=== PATIENT | male | born 1985 | race Caucasian/White ===

== ENCOUNTER 2016-05-29 19:30 | Inpatient (IN) | payer SELFPAY ==
[~2016-05-29] VITALS: Ht 182.9 cm; Wt 70.4 kg
[2016-05-29 19:32] VITALS: BP 133/79; PULSE 81; RESP 18; TEMP 98.5; O2SAT 100
[2016-05-29 20:46] VITALS: BP 127/78; PULSE 85; RESP 18; O2SAT 100
[2016-05-29] MEDS ORDERED: PIPERACIL-TAZO 4.5 GM PREMIX 100 ML IV STA (20:50)
[2016-05-29] MEDS ORDERED: VANCOMYCIN INJ 1,000 MG in SODIUM CHLOR 0.9% 250 ML INJ 250 ML IV STA (20:50)
[2016-05-29] MEDS ORDERED: SODIUM CHLOR 0.9% 1000 ML INJ 1,000 ML IV ONE (20:50)
--- NOTE | 2016-05-29 20:58 | PD ---
HPI Chief Complaint: Injury Time Seen by Provider: 20:50 Travel History International Travel<30 days: No Contact w/Intl Traveler<30days: No Traveled to known affect area: No History of Present Illness HPI 30-year-old [facility] male with history of no significant past medical issues presents to the ER today because he states that he had cut his left hand on a rock 6 days ago while kayaking, and his hands started becoming more swollen, red , and painful. He had tried to take Cipro for 2 days but with no relief. He denies any fevers or any other issues. Pain is currently a 10 out of 10. Modifying Factors: None Associated Signs & Symptoms: Left hand injury and infection Risk Factors: None PFSH Past Medical History Medical History: Denies Significant Hx ?: Not Past Surgical History Surgical History: No Previous Surgery Social History Alcohol Use: No Tobacco Use: No Substance Use: No Allergies-Medications (Allergen,Severity, Reaction): Coded Allergies: No Known Allergies (Unverified , 05/29/16) Reported Meds & Prescriptions Reported Meds & Active Scripts Active No Active Prescriptions or Reported Medications Review of Systems Except as stated in HPI: all other systems reviewed are Neg Physical Exam Narrative GENERAL: Well-nourished, well-developed young male patient in no acute distress. SKIN: Warm and dry. HEAD: Normocephalic. EYES: No scleral icterus. No injection or drainage. NECK: Supple, trachea midline. CARDIOVASCULAR: Regular rate and rhythm without murmurs, gallops, or rubs. RESPIRATORY: Breath sounds equal bilaterally. No accessory muscle use. GASTROINTESTINAL: Abdomen soft, non-tender, nondistended. MUSCULOSKELETAL: No cyanosis, or edema. BACK: Nontender without obvious deformity. No CVA tenderness. Left hand: There is a notable 1 cm wound to the left first metacarpal area, and surrounding edema and erythema over the first 3 metacarpal area extending towards the digits and up to the wrist, tender to palpation, I am unable to palpate obvious fluctuance. Data Data Last Documented VS Vital Signs Date Time Temp Pulse Resp B/P Pulse Ox O2 Delivery O2 Flow Rate FiO2 05/29/16 20:46 100 Room Air 05/29/16 20:46 85 18 127/78 05/29/16 19:32 98.5 Orders Complete Blood Count With Diff (05/29/16 20:50) Comprehensive Metabolic Panel (05/29/16 20:50) Lactic Acid Sepsis Protocol (05/29/16 20:50) Blood Culture (05/29/16 20:50) Blood Glucose (05/29/16 20:50) Ecg Monitoring (05/29/16 20:50) Iv Access Insert/Monitor (05/29/16 20:50) Oximetry (05/29/16 20:50) Oxygen Administration (05/29/16 20:50) Hydromorphone Pf Inj (Dilaudid Pf Inj) (05/29/16 21:00) Ondansetron Inj (Zofran Inj) (05/29/16 21:00) Piperacil-Tazo 4.5 Gm Premix (Zosyn 4.5 (05/29/16 20:50) Vancomycin Inj (Vancomycin Inj) (05/29/16 20:50) Sodium Chlor 0.9% 1000 Ml Inj (Ns 1000 M (05/29/16 20:50) Hand, Complete (Ont5ett) (05/29/16 20:50) Consult Hand Surgery (05/29/16 ) [employer] Request For Service (05/29/16 22:11) Labs Laboratory Tests Test 05/29/16 05/29/16 20:50 21:05 Lactic Acid Level 1.4 mmol/L White Blood Count 12.6 TH/MM3 Red Blood Count 5.16 MIL/MM3 Hemoglobin 15.4 GM/DL Hematocrit 44.7 % Mean Corpuscular Volume 86.5 FL Mean Corpuscular Hemoglobin 29.7 PG Mean Corpuscular Hemoglobin 34.4 % Concent Red Cell Distribution Width 13.7 % Platelet Count 181 TH/MM3 Mean Platelet Volume 9.1 FL Neutrophils (%) (Auto) 81.1 % Lymphocytes (%) (Auto) 10.2 % Monocytes (%) (Auto) 6.2 % Eosinophils (%) (Auto) 2.1 % Basophils (%) (Auto) 0.4 % Neutrophils # (Auto) 10.2 TH/MM3 Lymphocytes # (Auto) 1.3 TH/MM3 Monocytes # (Auto) 0.8 TH/MM3 Eosinophils # (Auto) 0.3 TH/MM3 Basophils # (Auto) 0.0 TH/MM3 CBC Comment DIFF FINAL Differential Comment Sodium Level 139 MEQ/L Potassium Level 3.9 MEQ/L Chloride Level 103 MEQ/L Carbon Dioxide Level 29.9 MEQ/L Anion Gap 6 MEQ/L Blood Urea Nitrogen 11 MG/DL Creatinine 1.05 MG/DL Estimat Glomerular Filtration 84 ML/MIN Rate Random Glucose 82 MG/DL Calcium Level 8.7 MG/DL Total Bilirubin 2.0 MG/DL Aspartate Amino Transf 34 U/L (AST/SGOT) Alanine Aminotransferase 24 U/L (ALT/SGPT) Alkaline Phosphatase 74 U/L Total Protein 8.6 GM/DL Albumin 4.3 GM/DL MDM Medical Decision Making Medical Screen Exam Complete: Yes Emergency Medical Condition: Yes Medical Record Reviewed: Yes Interpretation(s) Laboratory Tests Test 05/29/16 21:05 White Blood Count 12.6 TH/MM3 (4.0-11.0) Neutrophils (%) (Auto) 81.1 % (16.0-70.0) Neutrophils # (Auto) 10.2 TH/MM3 (1.8-7.7) Estimat Glomerular Filtration 84 ML/MIN (>89) Rate Total Bilirubin 2.0 MG/DL (0.2-1.0) Total Protein 8.6 GM/DL (6.4-8.2) Last 24 hours Impressions Hand X-Ray 05/29/162049 Signed Impressions: Service Date/Time: Sunday, May 29, 2016 21:04 - CONCLUSION: Soft tissue swelling without fracture. Tung Baker MD Differential Diagnosis Left hand injury and infectioncellulitis versus abscess Narrative Course His hand is quite edematous, although I am not able to palpate obvious fluctuance. At this point, x-ray did not show any signs of acute fractures or underlying foreign bodies. IV antibiotics had been initiated after cultures are drawn. And case was discussed with Dr. Herrera who states that he would like the patient to be medically admitted with IV antibiotics and hand elevation with IV pole and consult him and medically admitted. Case was discussed with Dr. Avalos for admission. Sepsis Criteria SIRS Criteria (2 or more): WBC > 65469, < 4000 or > 10% bands Sepsis Criteria (SIRS+source): Infect source susp/known Diagnosis Primary Impression: Cellulitis of left hand Admitting Information Admitting Physician Requests: Admit Scripts No Active Prescriptions or Reported Meds Kelly Mota MD May 29, 2016 20:58
[2016-05-29] MEDS ORDERED: ONDANSETRON HCL 4 MG/2 ML VIAL IV ONE (21:00)
[2016-05-29] MEDS ORDERED: HYDROmorphone HCL PF 1 MG/ML VIAL IV ONE (21:00)
[2016-05-29 21:23] LABS: AUTOMATED NEUTROPHIL # 10.2 TH/MM3 (1.8-7.7); BASOPHIL % 0.4 % (0.0-2.0); EOSINOPHIL # 0.3 TH/MM3 (0-0.4); EOSINOPHIL % 2.1 % (0.0-4.0); HEMATOCRIT 44.7 % (39.0-51.0); HEMO FLAGS DIFF FINAL; LYMPH % 10.2 % (9.0-44.0); LYMPHOCYTE # 1.3 TH/MM3 (1.0-4.8); MEAN CELL VOLUME 86.5 FL (80.0-100.0); MEAN CORPUSCULAR HEMOGLOBIN 29.7 PG (27.0-34.0); MEAN CORPUSCULAR HGB CONC 34.4 % (32.0-36.0); MONO % 6.2 % (0.0-8.0); NEUT % 81.1 % (16.0-70.0); PLATELET COUNT 181 TH/MM3 (150-450); RED BLOOD COUNT 5.16 MIL/MM3 (4.50-5.90); RED CELL DISTRIBUTION WIDTH 13.7 % (11.6-17.2); WHITE BLOOD COUNT 12.6 TH/MM3 (4.0-11.0)
--- NOTE | 2016-05-29 21:28 | RADRPT ---
EXAM DATE/TIME: 05/29/2016 21:04 [facility] COMPARISON: No previous studies available for comparison. INDICATIONS : Trauma to left hand. Swollen. MEDICAL HISTORY : None. SURGICAL HISTORY : None. ENCOUNTER: Initial ACUITY: 1 day PAIN SCORE: 5/10 LOCATION: Left hand FINDINGS: Bones of the left hand are intact and normally aligned. There is dorsal predominant soft tissue swell ing from the wrist to the metacarpophalangeal joint. No radiopaque foreign body demonstrated. CONCLUSION: Soft tissue swelling without fracture. Tung Baker MD on May 29, 2016 at 21:26 Board Certified Radiologist. This report was verified electronically.
[2016-05-29 21:43] LABS: ALKALINE PHOSPHATASE 74 U/L (45-117); ALT (GPT) 24 U/L (12-78); ANION GAP 6 MEQ/L (5-15); AST (GOT) 34 U/L (15-37); BICARBONATE 29.9 MEQ/L (21.0-32.0); BLOOD UREA NITROGEN 11 MG/DL (7-18); CHLORIDE 103 MEQ/L (98-107); GLOMERULAR FILTRATION RATE 84 ML/MIN (>89); SODIUM (NA) 139 MEQ/L (136-145)
[2016-05-29 22:00] LABS: POTASSIUM 3.9 MEQ/L (3.5-5.1)
[2016-05-29] MEDS ORDERED: NALOXONE HCL 0.4 MG/ML AMP IV PRN (22:30)
[2016-05-29] MEDS ORDERED: ONDANSETRON HCL 4 MG/2 ML VIAL IVP PRN (22:30)
[2016-05-29] MEDS ORDERED: SODIUM CHLORIDE 0.9% FLUSH 5 ML FLUSH FLUSH PRN (22:30)
[2016-05-29] MEDS ORDERED: Vancomycin Consult Pharmacy 1 EA OTHER SCH (22:30)
[2016-05-30] VITALS (8 sets, daily range): BP systolic 111–138; BP diastolic 70–89; PULSE 58–102; RESP 16–18; TEMP 97.7–99.6; O2SAT 96–100
[2016-05-30] MEDS ORDERED: VANCOMYCIN INJ 1,500 MG in SODIUM CHLORID 0.9% 500 ML INJ 500 ML IV SCH (01:00)
[2016-05-30] MEDS: HYDROmorphone HCL PF 1 MG/ML VIAL IV PUSH PRN ×5 (02:48→23:00)
--- NOTE | 2016-05-30 03:42 | HHI.HP ---
[facility] Service [facility] Primary Care Physician No Primary Care Physician Admission Diagnosis left hand cellulitis Diagnoses: (1) Cellulitis of left hand Chief Complaint: left hand injury with increasing pain and selling Travel History International Travel<30 Days: No Contact w/Intl Traveler <30 Da: No Traveled to Known Affected Are: No History of Present Illness Mr. Doss is a 30 year-old male with no significant medical history who is visiting the [facility] from [facility] who presented to the ER on 05/29/16 because his left hand was cut on a rock 6 days ago and had become more edematous, erythematous, and painful despite two days of treatment with Ciprofloxacin. The patient is seen in the emergency room. He is Bulgarian-speaking and the medical center manager was used. He states that while he was kayaking about a week ago and [facility], he scratched his hand on a rock. He was seen while he was seen by a in the and given ciprofloxacin 500 mg to take twice a day. He completed about 1-1/2 days of therapy and continued to experience worsening swelling, erythema, and pain. He reports the pain is severe and describes it as throbbing and worse with movement. Over the past two weeks he denies: Fevers, chills, nausea, vomiting, diarrhea, hematochezia, melena, hematuria, dysuria He denies any medical problems including diabetes mellitus, hypertension, breathing problems, heart problems, liver or kidney problems. He denies any problems with anesthesia in family members . Review of Systems Except as stated in HPI: all other systems reviewed are Neg Past Family Social History Past Medical History Denies any significant medical history . Past Surgical History Denies . Reported Medications Reported Meds & Active Scripts Active No Active Prescriptions or Reported Medications . Allergies: Coded Allergies: No Known Allergies (Unverified , 05/29/16) Active Ordered Medications Current Medications Hydromorphone HCl (Dilaudid Pf Inj) 0.5 mg ONCE ONCE IV Last administered on t 21:16; Start 05/29/16 at 21:00; Stop 05/29/16 at 21:01; Status DC Ondansetron HCl 4 mg 4 mg ONCE ONCE IV Last administered on 05/29/16 21:16; Start 05/29/16 at 21:00; Stop 05/29/16 at 21:01; Status DC Piperacillin Sod/ Tazobactam Sod 100 ml @ 200 mls/hr ONCE STAT IV Last administered on 05/29/16 21:16; Start 05/29/16 at 20:50; Stop 05/29/16 at 21:19; Status DC Vancomycin HCl 1000 mg/Sodium Chloride 250 ml @ 250 mls/hr ONCE STAT IV Last administered on 05/29/16 21:58; Start 05/29/16 at 20:50; Stop 05/29/16 at 21:49; Status DC Sodium Chloride (NS 1000 ml Inj) 1,000 ml @ 1,000 mls/hr Q1H ONCE IV Last administered on 05/29/16 21:16; Start 05/29/16 at 20:50; Stop 05/29/16 at 21:49; Status DC IV Flush (NS Flush) 2 ml UNSCH PRN FLUSH FLUSH AFTER USING IV ACCESS; Start 05/29/16 at 22:30 IV Flush (NS Flush) 2 ml BID FLUSH ; Start 05/30/16 at 09:00 Ondansetron HCl (Zofran Inj) 4 mg Q6H PRN IVP NAUSEA OR VOMITING Last administered on 05/30/16 02:48; Start 05/29/16 at 22:30 Naloxone HCl 0.4 mg 0.4 mg UNSCH PRN IV SEE LABEL COMMENTS; Start 05/29/16 at 22 :30 Pharmacy Profile Note 0 ml @ 0 mls/hr UNSCH OTHER ; Start 05/29/16 at 22:30 Piperacillin Sod/ Tazobactam Sod (Zosyn 4.5 Gm Premix) 100 ml @ 200 mls/hr Q6H IV Last administered on 05/30/16 03:45; Start 05/30/16 at 03:00 Hydromorphone HCl 0.2 mg 0.2 mg Q4H PRN IV PUSH pain >5 Last administered on 02:48; Start 05/29/16 at 22:30 Vancomycin HCl/ Sodium Chloride (Vancomycin Inj/ NS 500 ml Inj) 515 ml @ 250 mls/hr DAILY@ IV ; Start 05/30/16 at 01:00; Stop 05/30/16 at 06:00 . Family History Denies any significant medical history in any family members . Social History Tobacco: denies Alcohol: denies Illicit Drugs: denies . Physical Exam Vital Signs Vital Signs Date Time Temp Pulse Resp B/P Pulse Ox O2 Delivery O2 Flow Rate FiO2 05/30/16 03:00 72 18 126/89 99 Room Air 05/30/16 01:10 70 18 128/78 99 Room Air 05/30/16 00:15 99 Room Air 05/30/16 00:15 99 05/30/16 00:05 16 05/29/16 20:46 100 Room Air 05/29/16 20:46 85 18 127/78 100 Room Air 05/29/16 19:32 98.5 81 18 133/79 100 Room Air Physical Exam GENERAL: This is a well-nourished, well-developed patient, in no apparent distress. His hair is colored pink. SKIN: No rashes, ecchymoses or lesions. Cool and dry.Dorsal and anderson aspects of left hand indurated area with erythema and a dime-sized lesion with a central yellowish white pustule. HEAD: Atraumatic. Normocephalic. EYES: No scleral icterus. No injection or drainage. ENT: Nose without bleeding, purulent drainage. NECK: Trachea midline. No JVD or lymphadenopathy. CARDIOVASCULAR: Regular rate and rhythm without murmurs, gallops, or rubs. RESPIRATORY: Clear to auscultation. Breath sounds equal bilaterally. No wheezes , rales, or rhonchi. GASTROINTESTINAL: Abdomen soft, non-tender, nondistended. No guarding. MUSCULOSKELETAL: Extremities without clubbing, cyanosis, or edema. No calf tenderness. NEUROLOGICAL: Awake and alert. Motor and sensory grossly within normal limits. Normal speech. . Laboratory Laboratory Tests Test 05/29/16 05/29/16 20:50 21:05 Lactic Acid Level 1.4 White Blood Count 12.6 Red Blood Count 5.16 Hemoglobin 15.4 Hematocrit 44.7 Mean Corpuscular Volume 86.5 Mean Corpuscular Hemoglobin 29.7 Mean Corpuscular Hemoglobin 34.4 Concent Red Cell Distribution Width 13.7 Platelet Count 181 Mean Platelet Volume 9.1 Neutrophils (%) (Auto) 81.1 Lymphocytes (%) (Auto) 10.2 Monocytes (%) (Auto) 6.2 Eosinophils (%) (Auto) 2.1 Basophils (%) (Auto) 0.4 Neutrophils # (Auto) 10.2 Lymphocytes # (Auto) 1.3 Monocytes # (Auto) 0.8 Eosinophils # (Auto) 0.3 Basophils # (Auto) 0.0 CBC Comment DIFF FINAL Differential Comment Sodium Level 139 Potassium Level 3.9 Chloride Level 103 Carbon Dioxide Level 29.9 Anion Gap 6 Blood Urea Nitrogen 11 Creatinine 1.05 Estimat Glomerular Filtration 84 Rate Random Glucose 82 Calcium Level 8.7 Total Bilirubin 2.0 Aspartate Amino Transf 34 (AST/SGOT) Alanine Aminotransferase 24 (ALT/SGPT) Alkaline Phosphatase 74 Total Protein 8.6 Albumin 4.3 Date/Time Procedure Status Source Growth 05/29/16 21:05 Aerobic Blood Culture Received Blood Peripheral Pending 05/29/16 21:05 Anaerobic Blood Culture Received Blood Peripheral Pending Result Diagram: 05/29/16210405/29/162104 Imaging Last Impressions Hand X-Ray 05/29/162049 Signed Impressions: Service Date/Time: Sunday, May 29, 2016 21:04 - CONCLUSION: Soft tissue swelling without fracture. Tung Baker MD . Assessment and Plan Problem List: (1) Cellulitis of left hand ICD Code: L03.114 Status: Acute Assessment and Plan Left hand cellulitis - Left hand x-ray: soft tissue swelling without fracture - WBC > 12,000 with neutrophilia - Lactic acid 1.4 - Dr. Herrera consulted by ER physician; case was reviewed with him by ER MD - NPO for possible surgery in a.m. - Zosyn 4.5 grams IV q6h - Vancomycin IV with pharmacy consultation for assistance with therapeutic monitoring and dosing - Dilaudid 0.2 mg IV push every 4 hours as needed for pain - Case management consult - Monitor vital signs every 4 hours - Follow results of blood cultures (ordered in ER) DVT prophylaxis - SCDs Written by Ludmila Gold, acting as scribe for Dr. Avaols on 05/30/16 at 03:41. All or portions of this note were transcribed by scribe [Ludmila Gold]. I, Dr. Melinda Avalos personally performed the history, physical exam, and medical decision making; and confirmed the accuracy of the information in the transcribed note. Authenticated by Dr. Melinda Avalos on 05/30/16 at 0341 Discussed Condition With ER physician, RN, pharmacy, and patient . Physician Certification 2 Midnight Certification Type: Admission for Inpatient Services Order for Inpatient Services The services are ordered in accordance with Medicare regulations or non- Medicare payer requirements, as applicable. In the case of services not specified as inpatient-only, they are appropriately provided as inpatient services in accordance with the 2-midnight benchmark. Estimated LOS (days): 3 days is the estimated time the patient will need to remain in the hospital, assuming treatment plan goals are met and no additional complications. Post-Hospital Plan: Not yet determined Ludmila Gold May 30, 2016 03:42 Melinda Avalos MD May 30, 2016 06:59
[2016-05-30] MEDS: PIPERACIL-TAZO 4.5 GM PREMIX 100 ML IV SCH ×4 (03:45→21:09)
[2016-05-30] MEDS ORDERED: SODIUM CHLORIDE 0.9% FLUSH 5 ML FLUSH FLUSH SCH (09:00)
[2016-05-30] MEDS: VANCOMYCIN 1,000 MG/NS 250 ML IV SCH ×4 (10:05→22:38)
[2016-05-30] MEDS ORDERED: MORPHINE SULFATE 4 MG/ML INJ IV PUSH ONE (13:30)
--- NOTE | 2016-05-30 14:51 | MB ---
cc: ROGE CALABRESE III, M.D. 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 He was kayaking six or seven days ago and he scraped his left hand on the palm. He went to a doctor two days ago and got Cipro but presented late last night to the emergency room. He was started on IV vancomycin and Zosyn. PAST MEDICAL HISTORY Denied. PAST SURGICAL HISTORY Denied. MEDICATIONS Denied. ALLERGIES No known drug allergies. SOCIAL HISTORY He does not smoke. REVIEW OF SYSTEMS He is not complaining of any headaches, blurry or double vision. He is not complaining of any coughing, wheezing or shortness breath. He is not complaining of any nausea, vomiting, abdominal pain. He is not complaining of any burning, frequency or urgency with urination. He is not complaining of any spine, neck or back pain. He is not complaining of any night sweats, fevers or chills. He is not complaining of any anxiety, depression or suicidal ideations. He is not complaining of any skin lesions, rashes or eruptions on his skin except for his left hand. LABORATORY Laboratory studies were done. The white count yesterday was 12, 600. Microbiology has blood cultures which are negative thus far. IMAGING X-ray examination of his left hand revealed the bones of the left hand are intact. Dorsal predominant soft tissue swelling from the wrist to the MP joint. No radiopaque foreign body demonstrated. PHYSICAL EXAMINATION GENERAL: The patient is well-nourished and well-developed in no apparent distress, sitting comfortably in his bed. VITAL SIGNS: No temperatures recorded. Pulse 58, respiratory rate 16, blood pressure 121/73. LEFT UPPER EXTREMITY: His left hand is elevated in a sling. He has cellulitis in his palm with an eschar in the middle of his palm abutting the thenar eminence. There is a question of some fluctuance and there is suggestion of an abscess. Capillary refill is less than two seconds in all fingertips. All musculotendinous units are intact. There is no epitrochlear or axillary adenopathy. There is no proximal streaking across the wrist into the forearm. NEUROLOGIC: He is awake, alert and oriented x3. He is conversant through an architecture internship here as a nurse who speaks Upper Sorbian and interpreting everything between us. He is very pleasant. IMPRESSION Left hand cellulitis with possible abscess. PLAN I discussed this with the patient through the architecture internship to do limited incision and drainage here at the bedside and elevate the eschar. This should not need any anesthesia and I discussed this with the patient and he requests that we proceed. MD GHADA Becker III/BT /1:43 PM /2:30 PM
[2016-05-31] VITALS (7 sets, daily range): BP systolic 104–122; BP diastolic 57–76; PULSE 83–102; RESP 16–20; TEMP 98.1–100.4; O2SAT 97–100
[2016-05-31] MEDS: PIPERACIL-TAZO 4.5 GM PREMIX 100 ML IV SCH ×4 (02:19→20:43)
[2016-05-31] MEDS: HYDROmorphone HCL PF 1 MG/ML VIAL IV PUSH PRN ×3 (05:29→21:23)
--- NOTE | 2016-05-31 07:49 | HHI.PR ---
Subjective Remarks Says he has throbbing pain in his hand. Swelling is improving. No chest pain . Denies fever or chills. Noted temp if 100.4 in the morning. Add antipyretics. Objective Vitals Vital Signs Date Time Temp Pulse Resp B/P Pulse Ox O2 Delivery O2 Flow Rate FiO2 05/31/16 04:00 100.4 87 16 119/67 100 05/31/16 00:00 99.9 90 16 122/57 100 05/30/16 20:00 99.6 102 16 111/70 100 05/30/16 16:00 97.7 99 18 138/75 96 05/30/16 13:30 99.0 73 18 125/72 100 05/30/16 11:10 58 16 121/73 100 Room Air 05/30/16 09:10 60 16 122/78 100 Room Air I/O 05/30/16 05/30/16 05/30/16 05/31/16 05/31/16 05/31/16 07:00 15:00 23:00 07:00 15:00 23:00 Intake Total 930 ml Balance 930 ml Intake Oral 480 ml IV Total 450 ml # Voids 2 # Bowel Movements 0 Result Diagram: 05/29/16210405/31/1619 Imaging Last Impressions Hand X-Ray 05/29/162049 Signed Impressions: Service Date/Time: Sunday, May 29, 2016 21:04 - CONCLUSION: Soft tissue swelling without fracture. Tung Baker MD Objective Remarks GENERAL: This is a young 30 yo male, well-nourished, well-developed patient, in no apparent distress. His hair is colored pink. SKIN: No rashes, ecchymoses or lesions. Cool and dry.Dorsal and anderson aspects of left hand indurated area with erythema and a dime-sized lesion with a central yellowish white pustule. HEAD: Atraumatic. Normocephalic. EYES: No scleral icterus. No injection or drainage. ENT: Nose without bleeding, purulent drainage. NECK: Trachea midline. No JVD or lymphadenopathy. CARDIOVASCULAR: Regular rate and rhythm without murmurs, gallops, or rubs. RESPIRATORY: Clear to auscultation. Breath sounds equal bilaterally. No wheezes , rales, or rhonchi. GASTROINTESTINAL: Abdomen soft, non-tender, nondistended. No guarding. MUSCULOSKELETAL: Extremities without clubbing, cyanosis, or edema. No calf tenderness. NEUROLOGICAL: Awake and alert. Motor and sensory grossly within normal limits. Normal speech. A/P Problem List: (1) Cellulitis of left hand ICD Code: L03.114 Status: Acute Assessment and Plan Cellulitis of left hand Left hand x-ray: soft tissue swelling without fracture WBC > 12,000 with neutrophilia, Lactic acid 1.[address] Herrera consulted, s/p bedside I&D 05/30 Continue Zosyn 4.5 grams IV q6h Continue Vancomycin IV with pharmacy consultation for assistance with therapeutic monitoring and dosing Pain management per pain scale as need. Dilaudid 0.2 mg IV push every 4 hours as needed for pain Case management consult Monitor vital signs every 4 hours Blood cultures and wound cultures pending DVT prophylaxis: SCDs Discussed Condition With Patient, nurse. DC plan: pending improvement and clearance by consultants. Kimberly Manley MD May 31, 2016 07:48
[2016-05-31] MEDS ORDERED: ZOLPIDEM TARTRATE 5 MG TAB PO PRN (08:00)
[2016-05-31] MEDS ORDERED: PROCHLORPERAZINE 25 MG SUPP PR PRN (08:00)
[2016-05-31] MEDS ORDERED: NALOXONE HCL 0.4 MG/ML AMP IV PRN (08:00)
[2016-05-31] MEDS ORDERED: ACETAMINOPHEN/HYDROcodone 325 MG/5 MG TAB PO PRN (08:00)
[2016-05-31] MEDS ORDERED: ACETAMINOPHEN 325 MG TAB PO PRN (08:00)
[2016-05-31] MEDS ORDERED: MAGNESIUM HYDROXIDE SUSP 30 ML CUP PO PRN (08:00)
[2016-05-31] MEDS ORDERED: SODIUM CHLORIDE 0.9% FLUSH 5 ML FLUSH FLUSH PRN (08:00)
[2016-05-31] MEDS ORDERED: SENNOSIDES 8.6 MG TAB PO PRN (08:00)
[2016-05-31] MEDS ORDERED: BISACODYL 10 MG SUPP PR PRN (08:00)
[2016-05-31] MEDS: SODIUM CHLORIDE 0.9% FLUSH 5 ML FLUSH FLUSH SCH ×2 (08:54→20:40)
[2016-05-31] MEDS ORDERED: PHARMACY ORDERED LAB XX ONE ×2 (09:45→21:45)
[2016-05-31 10:34] LABS: BASOPHIL % 0.4 % (0.0-2.0); EOSINOPHIL # 0.2 TH/MM3 (0-0.4); EOSINOPHIL % 1.9 % (0.0-4.0); HEMATOCRIT 39.2 % (39.0-51.0); HEMO FLAGS DIFF FINAL; LYMPH % 11.1 % (9.0-44.0); LYMPHOCYTE # 1.2 TH/MM3 (1.0-4.8); MEAN CELL VOLUME 86.2 FL (80.0-100.0); MEAN CORPUSCULAR HEMOGLOBIN 29.1 PG (27.0-34.0); MEAN CORPUSCULAR HGB CONC 33.8 % (32.0-36.0); MONO % 6.7 % (0.0-8.0); NEUT % 79.9 % (16.0-70.0); PLATELET COUNT 184 TH/MM3 (150-450); RED BLOOD COUNT 4.55 MIL/MM3 (4.50-5.90); RED CELL DISTRIBUTION WIDTH 12.8 % (11.6-17.2); WHITE BLOOD COUNT 11.3 TH/MM3 (4.0-11.0)
[2016-05-31] MEDS: VANCOMYCIN 1,000 MG/NS 250 ML IV SCH ×4 (10:34→21:21)
[2016-05-31 10:55] LABS: POTASSIUM 3.2 MEQ/L (3.5-5.1)
[2016-05-31] MEDS ORDERED: POTASSIUM CHLORIDE 10 MEQ CONTROLLED RELEASE TAB PO ONE (11:30)
[2016-05-31] MEDS ORDERED: LIDOCAINE HCL 1% 50 ML VIAL ONE (11:44)
[2016-05-31] MEDS ORDERED: LIDOCAINE HCL 1% 50 ML VIAL INFIL ONE (11:45)
[2016-05-31] MEDS ORDERED: HYDROmorphone HCL PF 1 MG/ML VIAL IV PUSH ONE (11:45)
[2016-05-31] MEDS ORDERED: PROPOFOL 200 MG/20 ML AMP IV ONE (12:00)
--- NOTE | 2016-05-31 12:16 | HHI.PR ---
Subjective Remarks feels only a bit better Objective Vital Signs Date Time Temp Pulse Resp B/P Pulse Ox O2 Delivery O2 Flow Rate FiO2 05/31/16 08:00 99.1 87 16 104/71 100 05/31/16 04:00 100.4 87 16 119/67 100 05/31/16 00:00 99.9 90 16 122/57 100 05/30/16 20:00 99.6 102 16 111/70 100 05/30/16 16:00 97.7 99 18 138/75 96 05/30/16 13:30 99.0 73 18 125/72 100 I/O 05/30/16 05/30/16 05/30/16 05/31/16 05/31/16 05/31/16 07:00 15:00 23:00 07:00 15:00 23:00 Intake Total 930 ml Balance 930 ml Intake Oral 480 ml IV Total 450 ml # Voids 2 # Bowel Movements 0 Result Diagram: 05/31/16 1019 05/31/16 1019 Objective Remarks left hand still erythematous, with induration and purulent drainage soft, not tense; no compartment syndrome Assessment and Plan Problem List: (1) Cellulitis of left hand Status: Acute Plan: not able to tolerated bedside I&D today even with a median nerve block; to OR this afternoon for formal I&D d/w patient, nurse, pet technologist Sukumar Herrera III, MD May 31, 2016 12:16
--- NOTE | 2016-05-31 13:25 | MP ---
cc: SUKUMAR HERRERA III, M.D. DATE OF PROCEDURE 05/30/2016 PROCEDURE Incision and drainage left palm/hand. SURGEON Sukumar Herrera III, MD PROCEDURE The patient provided informed verbal consent in front of his friend and his nurse and he was made comfortable in his bed in his hospital room. The palm was sterilely prepped and, using the tip of the 22 gauge needle, the edge of the eschar was incised and approximately 5-10 cc of thick, purulent fluid was encountered. This was then sampled and passed off the field as a specimen. The whole entire hand was milked until no further purulence was expressible. Capillary refill was less than 2 seconds the entire time. There was no bleeding. The wound was gently packed and the hand wrapped with a circumferential dressing. The patient tolerated the procedure well. MD GHADA Becker III/TABATHA /1:48 PM /1:16 PM
[2016-05-31] MEDS: LACTATED RINGER'S 1000 ML INJ 1,000 ML IV SCH ×2 (13:32→20:44)
[2016-05-31] MEDS ORDERED: BUPIVACAINE HCL PF 0.5% 30 ML VIAL ONE (15:05)
[2016-05-31] MEDS ORDERED: LIDOCAINE HCL 2% 50 ML VIAL ONE (15:05)
[2016-05-31] MEDS ORDERED: MIDAZOLAM HCL 2 MG/2 ML VIAL ONE ×2 (16:26→17:26)
[2016-05-31] MEDS ORDERED: NEOMYCIN/POLYMYXIN 1 ML G.U. IRRIGANT IR ONE (16:51)
[2016-05-31] MEDS ORDERED: Vancomycin Consult Pharmacy 1 EA OTHER SCH (17:15)
--- NOTE | 2016-05-31 17:17 | HHI.PR ---
Immediate Post Op Note Procedure Date: May 31, 2016 Pre Op Diagnosis: (1) Cellulitis of left hand Post Op Diagnosis: Surgeon: Sukumar Herrera III Warehouse Shipping Clerk(s): Ruby Procedure: Insicion and drainage of left hand/palm Complications: 0 Specimen(s) removed: cultures Estimated blood loss: 0 Anesthesia: General, Local Drains: Dawit IVF Tourniquet time (min at mmHg) 12min @ 200mm Hg Patient to: PACU Patient Condition: Good Sukumar Herrera III, MD May 31, 2016 17:17
[2016-05-31] MEDS: ACETAMINOPHEN/HYDROcodone 325 MG/10 MG TAB PO PRN (20:39)
[2016-06-01] VITALS: BP 116/71; PULSE 82; RESP 20; TEMP 99.1; O2SAT 99
[2016-06-01] MEDS: PIPERACIL-TAZO 4.5 GM PREMIX 100 ML IV SCH ×2 (03:17→10:07)
[2016-06-01] MEDS: HYDROmorphone HCL PF 1 MG/ML VIAL IV PUSH PRN (03:19)
[2016-06-01 04:00] VITALS: BP 113/71; PULSE 65; RESP 20; TEMP 98.7; O2SAT 98
[2016-06-01] MEDS: LACTATED RINGER'S 1000 ML INJ 1,000 ML IV SCH ×3 (05:00→19:58)
[2016-06-01] MEDS: ACETAMINOPHEN/HYDROcodone 325 MG/10 MG TAB PO PRN ×3 (06:11→23:34)
[2016-06-01 06:33] LABS: AUTOMATED NEUTROPHIL # 5.6 TH/MM3 (1.8-7.7); BASOPHIL % 0.6 % (0.0-2.0); EOSINOPHIL # 0.2 TH/MM3 (0-0.4); EOSINOPHIL % 2.1 % (0.0-4.0); HEMO FLAGS DIFF FINAL; LYMPHOCYTE # 1.3 TH/MM3 (1.0-4.8); MEAN CORPUSCULAR HEMOGLOBIN 29.5 PG (27.0-34.0); MEAN CORPUSCULAR HGB CONC 34.3 % (32.0-36.0); MONO % 8.4 % (0.0-8.0); NEUT % 71.9 % (16.0-70.0); PLATELET COUNT 198 TH/MM3 (150-450); RED BLOOD COUNT 4.77 MIL/MM3 (4.50-5.90); RED CELL DISTRIBUTION WIDTH 12.9 % (11.6-17.2); WHITE BLOOD COUNT 7.8 TH/MM3 (4.0-11.0)
[2016-06-01 07:00] VITALS: BP 120/71; PULSE 80; RESP 18; TEMP 98.7; O2SAT 96
[2016-06-01 07:03] LABS: BICARBONATE 28.5 MEQ/L (21.0-32.0); POTASSIUM 3.7 MEQ/L (3.5-5.1)
--- NOTE | 2016-06-01 07:30 | HHI.PR ---
Subjective Remarks Feels much better, pain is better controlled. Swelling and redness are decreasing. Can move the fingers. No n/v/d/c. Objective Vitals Vital Signs Date Time Temp Pulse Resp B/P Pulse Ox O2 Delivery O2 Flow Rate FiO2 06/01/16 04:00 98.7 65 20 113/71 98 06/01/16 03:45 20 06/01/16 00:00 99.1 82 20 116/71 99 05/31/16 21:20 20 05/31/16 19:00 99.0 83 20 119/76 97 05/31/16 18:00 97.9 76 12 118/70 97 Nasal Cannula 2 05/31/16 17:58 98.1 102 16 107/72 100 05/31/16 17:45 80 12 107/64 97 Nasal Cannula 2 05/31/16 17:30 78 12 114/64 97 Nasal Cannula 2 05/31/16 17:15 97.9 82 12 119/72 99 Nasal Cannula 4 05/31/16 15:59 98.9 102 16 114/72 100 05/31/16 12:00 99.0 102 16 112/72 100 05/31/16 08:00 99.1 87 16 104/71 100 I/O 05/31/16 05/31/16 05/31/16 06/01/16 06/01/16 06/01/16 07:00 15:00 23:00 07:00 15:00 23:00 Intake Total 930 ml 1625 ml 930 ml Output Total 655 ml 0 ml Balance 930 ml 970 ml 930 ml Intake Oral 480 ml 625 ml 480 ml IV Total 450 ml 500 ml 450 ml Other 500 ml Output Urine Total 650 ml Emesis 0 ml Estimated Blood Loss 5 ml # Voids 2 10 # Bowel Movements 0 0 1 Result Diagram: 06/01/1651906/01/16519 Imaging Last Impressions Hand X-Ray 05/29/162049 Signed Impressions: Service Date/Time: Sunday, May 29, 2016 21:04 - CONCLUSION: Soft tissue swelling without fracture. Tung Baker MD Objective Remarks GENERAL: This is a young 30 yo male, well-nourished, well-developed patient, in no apparent distress. His hair is colored pink. SKIN: No rashes, ecchymoses or lesions. Cool and dry.Dorsal and anderson aspects of left hand indurated area with erythema and a dime-sized lesion with a central yellowish white pustule. HEAD: Atraumatic. Normocephalic. EYES: No scleral icterus. No injection or drainage. ENT: Nose without bleeding, purulent drainage. NECK: Trachea midline. No JVD or lymphadenopathy. CARDIOVASCULAR: Regular rate and rhythm without murmurs, gallops, or rubs. RESPIRATORY: Clear to auscultation. Breath sounds equal bilaterally. No wheezes , rales, or rhonchi. GASTROINTESTINAL: Abdomen soft, non-tender, nondistended. No guarding. MUSCULOSKELETAL: Extremities without clubbing, cyanosis, or edema. No calf tenderness. NEUROLOGICAL: Awake and alert. Motor and sensory grossly within normal limits. Normal speech. A/P Problem List: (1) Cellulitis of left hand ICD Code: L03.114 Status: Acute Assessment and Plan Cellulitis of left hand Left hand x-ray: soft tissue swelling without fracture WBC > 12,000 with neutrophilia, Lactic acid 1.[address] Herrera consulted, appreciate recommendations 05/31 not able to tolerated bedside I&D even with a median nerve block and was taken to OR 05/31 for I&D DC Zosyn 4.5 grams IV q6h. Start levaquin , cont Vancomycin IV with pharmacy consultation for assistance with therapeutic monitoring and dosing. Pain management per pain scale as need. Dilaudid 0.2 mg IV push every 4 hours as needed for pain, add norco PO per pain scale Case management consult Monitor vital signs every 4 hours Blood cultures and wound cultures pending DVT prophylaxis: SCDs Discussed Condition With Patient, nurse, Dr Herrera hand surgeon. DC plan:discussed with Dr Herrera, plan to DC later today. Kimberly Manley MD Jun 01, 2016 07:30
[2016-06-01] MEDS ORDERED: NORC5TAB PO (07:31)
--- NOTE | 2016-06-01 07:32 | HHI.DCPOC ---
Discharge Care Plan Goals to Promote Your Health * To prevent worsening of your condition and complications * To maintain your health at the optimal level Directions to Meet Your Goals Take your medications as prescribed Follow your dietary instruction Follow activity as directed Keep your appointments as scheduled Take your immunizations and boosters as scheduled If your symptoms worsen call your PCP, if no PCP go to Urgent Care Center or Emergency Room Smoking is Dangerous to Your Health. Avoid second hand smoke Call the 24-hour hour crisis hotline for domestic abuse at Kimberly Manley MD Jun 01, 2016 07:32
[2016-06-01] MEDS ORDERED: PHARMACY ORDERED LAB XX ONE (09:45)
[2016-06-01] MEDS: VANCOMYCIN 1,000 MG/NS 250 ML IV SCH ×2 (10:12)
[2016-06-01] MEDS: SODIUM CHLORIDE 0.9% FLUSH 5 ML FLUSH FLUSH SCH ×2 (10:13→19:58)
[2016-06-01 11:00] VITALS: BP 130/81; PULSE 91; RESP 18; TEMP 98.9; O2SAT 92
--- NOTE | 2016-06-01 12:41 | HHI.PR ---
Subjective Remarks no new complaints Objective Vital Signs Date Time Temp Pulse Resp B/P Pulse Ox O2 Delivery O2 Flow Rate FiO2 06/01/16 07:00 98.7 80 18 120/71 96 06/01/16 04:00 98.7 65 20 113/71 98 06/01/16 03:45 20 06/01/16 00:00 99.1 82 20 116/71 99 05/31/16 21:20 20 05/31/16 19:00 99.0 83 20 119/76 97 05/31/16 18:00 97.9 76 12 118/70 97 Nasal Cannula 2 05/31/16 17:58 98.1 102 16 107/72 100 05/31/16 17:45 80 12 107/64 97 Nasal Cannula 2 05/31/16 17:30 78 12 114/64 97 Nasal Cannula 2 05/31/16 17:15 97.9 82 12 119/72 99 Nasal Cannula 4 05/31/16 15:59 98.9 102 16 114/72 100 I/O 05/31/16 05/31/16 05/31/16 06/01/16 06/01/16 06/01/16 07:00 15:00 23:00 07:00 15:00 23:00 Intake Total 930 ml 1625 ml 930 ml Output Total 655 ml 0 ml Balance 930 ml 970 ml 930 ml Intake Oral 480 ml 625 ml 480 ml IV Total 450 ml 500 ml 450 ml Other 500 ml Output Urine Total 650 ml Emesis 0 ml Estimated Blood Loss 5 ml # Voids 2 10 # Bowel Movements 0 0 1 Result Diagram: 06/01/16 0520 06/01/16519 Objective Remarks left hand still erythematous, no induration; no purulent drainage at all soft, not tense; no compartment syndrome moves all fingers and thumb Assessment and Plan Problem List: (1) Cellulitis of left hand Status: Acute Plan: drains and packing removed; packing reapplied w soft dressing d/c Zosyn Start Levaquin; continue vanco If there is a dramatic improvement in the next 8 hours in the redness and swelling, the patient may be discharge on PO abx d/w patient, nurse, field marketing manager Sukumar Herrera III, MD Jun 01, 2016 12:41
[2016-06-01] MEDS: LEVOFLOXACIN 750 MG TAB PO SCH (12:45)
[2016-06-01 16:00] VITALS: BP 116/52; PULSE 70; RESP 18; TEMP 98.5; O2SAT 100
[2016-06-01] MEDS ORDERED: LEVA750T PO (16:23)
--- NOTE | 2016-06-01 16:27 | HHI.DS ---
Discharge Summary Admission Date May 29, 2016 at 22:24 Discharge Date: Jun 01, 2016 Admitting Diagnosis left hand cellulitis (1) Cellulitis of left hand ICD Code: L03.114 Procedures I&D by Dr Herrera Brief History - From Admission Mr. Doss is a 30 year-old male with no significant medical history who is visiting the [facility] from [facility] who presented to the ER on 05/29/16 because his left hand was cut on a rock 6 days ago and had become more edematous, erythematous, and painful despite two days of treatment with Ciprofloxacin. The patient is seen in the emergency room. He is Portuguese-speaking and the medical diagnostic radiographer was used. He states that while he was kayaking about a week ago and [facility], he scratched his hand on a rock. He was seen while he was seen by a in the and given ciprofloxacin 500 mg to take twice a day. He completed about 1-1/2 days of therapy and continued to experience worsening swelling, erythema, and pain. He reports the pain is severe and describes it as throbbing and worse with movement. Over the past two weeks he denies: Fevers, chills, nausea, vomiting, diarrhea, hematochezia, melena, hematuria, dysuria He denies any medical problems including diabetes mellitus, hypertension, breathing problems, heart problems, liver or kidney problems. He denies any problems with anesthesia in family members . CBC/BMP: 06/01/16 0520 06/01/16 0520 Significant Findings Laboratory Tests Test 05/29/16 05/31/16 06/01/16 06/01/16 21:05 10:19 05:20 10:00 White Blood Count 12.6 TH/MM3 11.3 TH/MM3 (4.0-11.0) (4.0-11.0) Neutrophils (%) (Auto) 81.1 % 79.9 % 71.9 % (16.0-70.0) (16.0-70.0) (16.0-70.0) Neutrophils # (Auto) 10.2 TH/MM3 9.0 TH/MM3 (1.8-7.7) (1.8-7.7) Estimat Glomerular Filtration 84 ML/MIN (>89) Rate Total Bilirubin 2.0 MG/DL (0.2-1.0) Total Protein 8.6 GM/DL (6.4-8.2) Potassium Level 3.2 MEQ/L (3.5-5.1) Random Glucose 137 MG/DL (74-106) Monocytes (%) (Auto) 8.4 % (0.0-8.0) Vancomycin Level Trough 4.9 MCG/ML (5.0-10.0) Imaging Last Impressions Hand X-Ray 05/29/162049 Signed Impressions: Service Date/Time: Sunday, May 29, 2016 21:04 - CONCLUSION: Soft tissue swelling without fracture. Tung Baker MD PE at Discharge GENERAL: This is a young 30 yo male, well-nourished, well-developed patient, in no apparent distress. His hair is colored pink. SKIN: No rashes, ecchymoses or lesions. Cool and dry.Dorsal and anderson aspects of left hand indurated area with erythema and a dime-sized lesion with a central yellowish white pustule. HEAD: Atraumatic. Normocephalic. EYES: No scleral icterus. No injection or drainage. ENT: Nose without bleeding, purulent drainage. NECK: Trachea midline. No JVD or lymphadenopathy. CARDIOVASCULAR: Regular rate and rhythm without murmurs, gallops, or rubs. RESPIRATORY: Clear to auscultation. Breath sounds equal bilaterally. No wheezes , rales, or rhonchi. GASTROINTESTINAL: Abdomen soft, non-tender, nondistended. No guarding. MUSCULOSKELETAL: Extremities without clubbing, cyanosis, or edema. No calf tenderness. NEUROLOGICAL: Awake and alert. Motor and sensory grossly within normal limits. Normal speech. Hospital Course Cellulitis of left hand Left hand x-ray: soft tissue swelling without fracture WBC > 12,000 with neutrophilia, Lactic acid 1.[address] Herrera consulted, appreciate recommendations 05/31 not able to tolerated bedside I&D even with a median nerve block and was taken to OR 05/31 for I&D DC Zosyn 4.5 grams IV q6h. Start levaquin , cont Vancomycin IV with pharmacy consultation for assistance with therapeutic monitoring and dosing. Pain management per pain scale as need. Dilaudid 0.2 mg IV push every 4 hours as needed for pain, add norco PO per pain scale Case management consult Monitor vital signs every 4 hours Blood cultures negative to date and wound cultures with staph aureus pansensitive, discussed with Dr Herrera. DVT prophylaxis: SCDs DC plan:discussed with Dr Herrera, plan to DC later today. Per Dr Herrera patient to be discharged either on levaquin or doxy. Patient to follow up as OP with PCP and consultants. Pt Condition on Discharge: Stable Discharge Disposition: Discharge Home Discharge Time: <= 30 minutes Discharge Instructions DIET: Follow Instructions for: As Tolerated, No Restrictions Activities you can perform: Regular-No Restrictions Follow up Referrals: Hand Surgery - 1 Week with Sukumar Herrera III, MD PCP Follow-up - 3-5 Days with Maria R Paris MD New Medications: Hydrocodone-Acetaminophen (Lyndon) 5-325 mg Tab 1 TAB PO Q6H PRN PAIN #20 Ref 0 TAB Levofloxacin (Levaquin) 750 Mg Tab 750 MG PO DAILY infection #10 TAB Kimberly Manley MD Jun 01, 2016 16:26
[2016-06-01] MEDS: VANCOMYCIN INJ 1,250 MG in SODIUM CHLOR 0.9% 250 ML INJ 250 ML IV SCH (19:58)
[2016-06-01 20:00] VITALS: BP 109/79; PULSE 69; RESP 20; TEMP 98.7; O2SAT 97
[2016-06-02] VITALS: BP 112/70; PULSE 74; RESP 18; TEMP 98.3; O2SAT 99
[2016-06-02 04:00] VITALS: BP 96/60; PULSE 77; RESP 18; TEMP 98.4; O2SAT 98
[2016-06-02 04:37] LABS: AUTOMATED NEUTROPHIL # 4.1 TH/MM3 (1.8-7.7); BASOPHIL % 0.7 % (0.0-2.0); EOSINOPHIL # 0.2 TH/MM3 (0-0.4); EOSINOPHIL % 3.3 % (0.0-4.0); HEMATOCRIT 38.9 % (39.0-51.0); HEMO FLAGS DIFF FINAL; LYMPH % 24.5 % (9.0-44.0); LYMPHOCYTE # 1.6 TH/MM3 (1.0-4.8); MEAN CELL VOLUME 84.8 FL (80.0-100.0); MEAN CORPUSCULAR HEMOGLOBIN 29.8 PG (27.0-34.0); MEAN CORPUSCULAR HGB CONC 35.2 % (32.0-36.0); MONO % 8.7 % (0.0-8.0); NEUT % 62.8 % (16.0-70.0); PLATELET COUNT 208 TH/MM3 (150-450); RED BLOOD COUNT 4.59 MIL/MM3 (4.50-5.90); WHITE BLOOD COUNT 6.5 TH/MM3 (4.0-11.0)
[2016-06-02] MEDS: LACTATED RINGER'S 1000 ML INJ 1,000 ML IV SCH ×2 (05:00→12:42)
[2016-06-02 05:14] LABS: BICARBONATE 27.5 MEQ/L (21.0-32.0); POTASSIUM 3.7 MEQ/L (3.5-5.1)
--- NOTE | 2016-06-02 07:36 | HHI.PR ---
Subjective Remarks Less erythema and edema.Less pain, controlled by meds. No fever or chills. No n /v/d/c. Patient did not live last night as he did not have a ride... Objective Vitals Vital Signs Date Time Temp Pulse Resp B/P Pulse Ox O2 Delivery O2 Flow Rate FiO2 06/02/16 04:00 Room Air 06/02/16 04:00 98.4 77 18 96/60 98 06/02/16 00:00 98.3 74 18 112/70 99 06/02/16 00:00 Room Air 06/01/16 20:00 98.7 69 20 109/79 97 06/01/16 16:00 98.5 70 18 116/52 100 06/01/16 11:00 98.9 91 18 130/81 92 I/O 06/01/16 06/01/16 06/01/16 06/02/16 06/02/16 06/02/16 07:00 15:00 23:00 07:00 15:00 23:00 Intake Total 930 ml 1200 ml 1050 ml Output Total 0 ml 0 ml Balance 930 ml 1200 ml 1050 ml Intake Oral 480 ml 800 ml 800 ml IV Total 450 ml 400 ml 250 ml Emesis 0 ml 0 ml # Voids 10 5 4 # Bowel Movements 1 0 0 Result Diagram: 06/02/1640606/02/16406 Imaging Last Impressions Hand X-Ray 05/29/162049 Signed Impressions: Service Date/Time: Sunday, May 29, 2016 21:04 - CONCLUSION: Soft tissue swelling without fracture. Tung Baker MD Objective Remarks GENERAL: This is a young 30 yo male, well-nourished, well-developed patient, in no apparent distress. His hair is colored pink. SKIN: No rashes, ecchymoses or lesions. Cool and dry.Dorsal and anderson aspects of left hand indurated area with erythema and a dime-sized lesion with a central yellowish white pustule. HEAD: Atraumatic. Normocephalic. EYES: No scleral icterus. No injection or drainage. ENT: Nose without bleeding, purulent drainage. NECK: Trachea midline. No JVD or lymphadenopathy. CARDIOVASCULAR: Regular rate and rhythm without murmurs, gallops, or rubs. RESPIRATORY: Clear to auscultation. Breath sounds equal bilaterally. No wheezes , rales, or rhonchi. GASTROINTESTINAL: Abdomen soft, non-tender, nondistended. No guarding. MUSCULOSKELETAL: Extremities without clubbing, cyanosis, or edema. No calf tenderness. NEUROLOGICAL: Awake and alert. Motor and sensory grossly within normal limits. Normal speech. Procedures I&D by Dr Herrera A/P Problem List: (1) Cellulitis of left hand ICD Code: L03.114 Status: Acute Assessment and Plan Cellulitis of left hand Left hand x-ray: soft tissue swelling without fracture WBC > 12,000 with neutrophilia, Lactic acid 1.[address] Herrera consulted, appreciate recommendations 05/31 not able to tolerated bedside I&D even with a median nerve block and was taken to OR 05/31 for I&D DC Zosyn 4.5 grams IV q6h. Start levaquin , cont Vancomycin IV with pharmacy consultation for assistance with therapeutic monitoring and dosing. Pain management per pain scale as need. Dilaudid 0.2 mg IV push every 4 hours as needed for pain, add norco PO per pain scale Case management consult Monitor vital signs every 4 hours Blood cultures and wound cultures pending DVT prophylaxis: SCDs Discussed Condition With Patient, nurse, Dr Herrera hand surgeon. DC plan:discussed with Dr Herrera ok for DC Patient was DC 06/01, however did not live because did not have a ride. CM following. Kimberly Manley MD Jun 02, 2016 07:36
[2016-06-02 07:45] VITALS: BP 120/87; PULSE 90; RESP 18; TEMP 97.2; O2SAT 93
[2016-06-02] MEDS: LEVOFLOXACIN 750 MG TAB PO SCH (09:02)
[2016-06-02] MEDS: ACETAMINOPHEN/HYDROcodone 325 MG/10 MG TAB PO PRN (09:03)
[2016-06-02] MEDS: SODIUM CHLORIDE 0.9% FLUSH 5 ML FLUSH FLUSH SCH (09:05)
[2016-06-02] MEDS: VANCOMYCIN INJ 1,250 MG in SODIUM CHLOR 0.9% 250 ML INJ 250 ML IV SCH (09:07)
[2016-06-02 11:00] VITALS: BP 115/70; PULSE 68; RESP 18; TEMP 97.4; O2SAT 94
[2016-06-02] MEDS ORDERED: PROT40TA PO (15:15)
[2016-06-02] MEDS ORDERED: LACTCHW3 CHEW (15:15)
[2016-06-03] MEDS ORDERED: PHARMACY ORDERED LAB XX ONE (07:45)
--- NOTE | 2016-06-04 10:02 | MP ---
cc: SUKUMAR HERRERA III, M.D. DATE OF OPERATION 05/31/2016 PREOPERATIVE DIAGNOSIS Left hand abscess. PROCEDURE Left hand and palm incision and drainage. SURGEON Sukumar Herrera III, MD PROCEDURE The patient was brought to the operating room and placed supine on the operating table after the correct site and side of surgery were verified by members of each team in the room multiple times including the patient and myself and, after adequate preop markings and preoperative written consent were verified by everyone and after adequate preop time-out was performed to everyone's satisfaction, after adequate general anesthesia was achieved, the left upper extremity was prepped and draped in traditional sterile surgical fashion. The limb was elevated for 1 minute with pressure held on the brachial artery and a highly placed, well-padded axillary tourniquet inflated to 200 mmHg for a total of 12 minutes. The superficial epidermal layer of skin was debrided. The wound was then cleaned of its devitalized edges. Cultures from deep within the hand were then obtained and passed off the field as specimen. More purulence was encountered. A suction catheter was placed within the wound and advanced into the first webspace. A counter-incision within the distal palmar flexion crease was made corresponding to this as a counter-incision and was 1 cm in length. The wound was then examined fully as was the abscess cavity and there was no devitalized tissue and no obvious focus of infection. It was gently debrided with a curette and then 2 liters worth of antiseptic antibiotic saline solution was then pulse lavage flushed through the entire wound. It was then cleansed and dried. All tissue that was visible was viable. The hand and arm were thoroughly cleansed and dried. A 1/4-inch Ehrenberg drain split in half longitudinally was then placed through and through the wound and 1/4-inch packing was used to loosely pack either wound. A bulky soft dressings was applied. The axillary tourniquet was released. The hand and all fingers became immediately soft, pink and warm and had brisk capillary refill of less than 2 seconds. There was no evidence of any bleeding. Of note, no deep or vital structures were visible in the wound or the abscess cavity. Prior to the start, a median nerve block was done for postoperative pain control using 7 cc of a 50/50 mixture of 2% plain lidocaine and 0.5% plain Marcaine. The patient was awakened from anesthesia and transported to the Post-Anesthesia Care Unit awake and in stable condition. The sponge, needle and instrument counts were correct at the end of the case as reported by the nurses in the room. MD GHADA Becker III/TABATHA /5:24 PM /8:54 AM
== END 2016-06-02 15:30 | disposition home or self-care (01) | DRG 603 ==
LOC: EDBD → NEPE 19:30 → NEDA 22:24 → NEDH 05-30 02:24 → HCIS 05-30 12:05
PROVIDERS: ADMIT Hospitalist; ATTEND Hospitalist
PROC: 0H9GXZX Drainage of Left Hand Skin, External Approach, Diagnostic (ICD-10-PCS; principal; 2016-05-30)
PROC: 0HDGXZZ Extraction of Left Hand Skin, External Approach (ICD-10-PCS; 2016-05-31)
PROC: 3E0T3CZ (ICD-10-PCS; 2016-05-31)
DX: L02.512 Cutaneous abscess of left hand (principal); L03.114 Cellulitis of left upper limb; B95.61 Methicillin susceptible Staphylococcus aureus infection as the cause of diseases classified elsewhere
CPT/HCPCS: 73130; 80048; 80053; 80202; 82565; 83605; 85025; 86403; 87015; 87040; 87070; 87102; 87116; 87147; 87186; 87205; 87206; 96365; 96367; 96375; J1170; J2250; J2405; J2543; J3010; J3370; J7030; J7050; J7120